=== PATIENT | male | born 1945 | race African-American/Black ===

== ENCOUNTER → 2017-10-24 | Outpatient (CLI) | payer MEDICARE ==
[~2017-10-24] MED LIST: ALBUTEROL0.63 MG/3 INH; AMLODIPINE BESY10 MG PO; BENAZEPRIL HCL10 MG PO; CETIRIZINE HCL10 M1 PO; FAMOTIDINE20 MG PO; SPIRIVA18 MCG INH; SYMBICORT 16010.2 GM PO; [UNRECOGNIZED DRUG - OTHER] PO
--- NOTE | 2017-10-24 11:04 | Diagnostic Imaging Report ---
PROCEDURE:TESTICULAR ULTRASOUND COMPARISON:None. INDICATIONS:SPERMATOCELE OF EPIDIDYMIS FINDINGS: Multiple sagittal and axial images were obtained of the scrotum. Doppler examination was performed bilaterally. The right testicle measures 3.6 x 1.9 x 3.1 cm. It is of normal echogenicity without focal masses. The vascular supply is within normal limits, without evidence of testicular torsion. The right epididymis measures approximately 1.2 x 2.0 x 0.9 cm. the right epididymis is heterogeneous with at least 2 complex cystic lesions measuring up to 1.0 cm. No hydrocele or varicocele is identified. The left testicle measures 2.9 x 2.6 x 2.7 cm. It is within normal echogenicity without focal masses. The vascular supply is within normal limits, without evidence for torsion. The left epididymis measures approximately 1.2 x 0.8 x 1.0 cm and is within normal limits. There is a large left hydrocele. No varicocele. There is no sonographic evidence for right or left inguinal hernia. Overlying scrotal tissue is within normal limits. CONCLUSION: 1. Mildly complex cystic lesions in the right epididymis, measuring up to 1.0 cm. These likely represent epididymal cysts or spermatoceles. 2. Large left hydrocele. Dictated by: Naren Pugh M.D. on 10/24/2017 at 11:13 Electronically approved by: Naren Pugh M.D. on 10/24/2017 at 11:13
--- NOTE | 2017-10-24 11:05 | Diagnostic Imaging Report ---
PROCEDURE:US TESTICULAR DOPPLER LTD Please see separate dictation for testicular ultrasound (accession #[id number]) for full results. Dictated by: Naren Pugh M.D. on 10/24/2017 at 11:14 Electronically approved by: Naren Pugh M.D. on 10/24/2017 at 11:14
== END ==
LOC: US 09:43
PROVIDERS: ATTEND Urology
DX: N43.40 Spermatocele of epididymis, unspecified (principal)
CPT/HCPCS: 76870; 93976